=== PATIENT | female | born 1995 | race African-American/Black ===

== ENCOUNTER 2017-06-18 22:32 | Emergency (ER) | payer MEDICAID, OTHER ==
[~2017-06-18 22:32] MED LIST: CIPR500T4 PO; DOXY100T PO; Z.0.NO CURRENT MEDS
[2017-06-18 22:35] VITALS: BP 153/88; PULSE 56; RESP 16; TEMP 98.2; O2SAT 100
--- NOTE | 2017-06-18 23:11 | PD ---
HPI Chief Complaint: Entry Level Account Representative Problem/Complaint Time Seen by Provider: 22:44 Travel History International Travel<30 days: No Contact w/Intl Traveler<30days: No Traveled to known affect area: No History of Present Illness HPI Patient is a 22-year-old female presents emergency Department with vaginal discharge the past few days. Patient states she went to an outside facility was given a shot of some antibiotic and wasn't told what was wrong with her and went home. Patient states that since then she's had some yogurt colored discharge. She states she thinks is the worst he states infection of her life. Denies any abdominal pain and constipation nausea vomiting diarrhea. She has had STDs in the past but does not believe this is one of them. [facility] Past Medical History Diminished Hearing: No Reproductive: Yes (MULTIPLE STD'S (STATES RAPED AT AGE 16)) Tetanus Vaccination: Unknown Influenza Vaccination: No PNEUMOCCOCAL Vaccine (Year): 3 ?: Unknown LMP: "SOME TIME LAST MONTH" : 1 Para: 1 Past Surgical History Section: Yes Social History Alcohol Use: Yes (OCCASIONAL) Tobacco Use: Yes (2-3 CIGS/DAY) Substance Use: Yes (MARIJUANA OCCASIONAL) Allergies-Medications (Allergen,Severity, Reaction): Coded Allergies: Onion (Verified Allergy, Severe, THROAT SWELLS, 06/18/17) Banana (Verified Allergy, Intermediate, HIVES, 06/18/17) Reported Meds & Prescriptions Reported Meds & Active Scripts Active Flagyl (Metronidazole) 500 Mg Tab 500 Mg PO BID 7 Days Review of Systems Except as stated in HPI: all other systems reviewed are Neg Physical Exam Narrative GENERAL: Well-nourished, well-developed patient. SKIN: Focused skin assessment warm/dry. HEAD: Normocephalic. EYES: No scleral icterus. No injection or drainage. NECK: Supple, trachea midline. No JVD or lymphadenopathy. CARDIOVASCULAR: Regular rate and rhythm without murmurs, gallops, or rubs. RESPIRATORY: Breath sounds equal bilaterally. No accessory muscle use. GASTROINTESTINAL: Abdomen soft, non-tender, nondistended. GENITOURINARY: Exam was performed with female nurse orthotist/prosthetist present at all times, there is foul smelling fishy odor discharge creamy in nature, consistent with BV, no cervical motion tenderness no abdominal tenderness. No lesions seen. MUSCULOSKELETAL: No cyanosis, or edema. BACK: Nontender without obvious deformity. No CVA tenderness. Data Data Last Documented VS Vital Signs Date Time Temp Pulse Resp B/P Pulse Ox O2 Delivery O2 Flow Rate FiO2 06/18/17 22:35 98.2 56 16 153/88 100 Room Air Orders Urinalysis - C+S If Indicated (06/18/17 23:10) Ed Urine Pregnancytest Poc (06/18/17 23:10) Wet Prep Profile (06/18/17 23:10) Gc And Chlamydia Pcr (06/18/17 23:10) Labs Laboratory Tests Test 06/18/17 06/19/17 23:15 00:10 Urine Color YELLOW Urine Turbidity CLEAR Urine pH 7.5 Urine Specific [place] 1.016 Urine Protein NEG mg/dL Urine Glucose (UA) NEG mg/dL Urine Ketones NEG mg/dL Urine Occult Blood NEG Urine Nitrite NEG Urine Bilirubin NEG Urine Urobilinogen LESS THAN 2.0 MG/DL Urine Leukocyte Esterase TRACE Urine RBC LESS THAN 1 /hpf Urine WBC 8 /hpf Urine Squamous Epithelial 1 /hpf Cells Urine Transitional Epithelial <1 /hpf Cells Urine Renal Epithelial Cells <1 /hpf Urine Mucus FEW /lpf Microscopic Urinalysis Comment CULT NOT INDICATED Clue Cells (Wet Prep) PRESENT Vaginal Trichomonas (Wet Prep) NONE SEEN Vaginal Yeast (Wet Prep) NONE SEEN MDM Medical Decision Making Medical Screen Exam Complete: Yes Emergency Medical Condition: Yes Differential Diagnosis BV, CV, STD Narrative Course Patient roomed in emergency department, pelvic exam performed reveals bacterial vaginosis. Covered on Flagyl. Discussed disulfiram reaction need follow-up the primary care physician. She states she's been monogamous with one boyfriend , STD testing was sent and we will contact her if there is any issue. She stable for discharge at this time. Diagnosis Primary Impression: Bacterial vaginosis Med/Other Pt SpecificInfo: Prescription(s) given Scripts Metronidazole (Flagyl)500 Mg [id number] Mg PO BID 7 Days Ref 0 Prov:Abdifatah Gambino MD 06/19/17 Disposition: 01 DISCHARGE HOME Condition: Stable Abdifatah Gambino MD Jun 18, 2017 23:10
[2017-06-18 23:41] LABS: BLOOD, URINE NEG (NEG); COMMENT (UR) CULT NOT INDICATED; CULTURE IF INDICATED CULT NOT INDICATED; GLUCOSE,URINE NEG (NEG); KETONE, URINE NEG (NEG); MUCUS URINE FEW /lpf (OCC); NITRITE,URINE NEG (NEG); PH, URINE 7.5 (5.0-8.5); RENAL EPITHELIAL CELLS <1 /hpf; SQUAMOUS EPITHELIAL CELL URINE 1 /hpf (0-5); TRANSITIONAL EPI CELLS, URINE <1 /hpf; URINE COLOR YELLOW (YELLW/STRAW)
[2017-06-19] MEDS ORDERED: METR-1 PO (00:19)
[2017-06-19 01:15] LABS: CHLAMYDIA PCR DETECTED (NOT DETECT); NEISSERIA PCR NOT DETECTED (NOT DETECT)
== END 2017-06-19 00:46 | disposition home or self-care (01) ==
LOC: NEPD 22:32
DX: N76.0 Acute vaginitis (principal)
CPT/HCPCS: 81001; 84703; 87210; 87491; 87591; 99283